=== PATIENT | female | born 1940 | race Caucasian/White ===

== ENCOUNTER → 2022-04-16 | Day surgery (SDC) | payer MEDICARE, OTHER ==
[~2022-04-16] VITALS: Ht 165.1 cm; Wt 57.5 kg
[~2022-04-16] MED LIST: ALEVE220 MG PO; ASPIRIN EC81 MG PO; CERTAGEN1 EACH PO; FISH OIL 1,2001 EAC1 PO; FLAX SEED OIL1 EACH PO; HCTZ25 MG PO; HYDROCHLOROTH12.5 MG PO; MELOXICAM7.5 MG PO; PERCOCET 5-3251 EACH PO; PROBIOTIC PO; VITAMIN C500 M2 PO; VITAMIN D325 MC2 PO
[2022-04-16 08:36] LABS: HCT 43.7 % (37.0-47.0); HGB 14.8 g/dl (12.5-16.0); MCH 31.7 pg (25.0-31.0); MCHC 33.9 g/dL (32.0-36.0); MCV 93.6 fL (78.0-100.0); MPV 8.6 fL (6.0-9.5); RBC 4.67 M/uL (4.20-5.40); RDW 13.1 % (11.5-14.0); WBC 3.8 K/uL (4.0-10.5)
[2022-04-16 09:00] LABS: ALBUMIN 3.4 g/dL (3.4-5.0); BILIRUBIN - TOTAL 0.8 mg/dL (0.2-1.0); BUN/CREAT RATIO (CALC) 18.3 RATIO; CREATININE 0.82 mg/dL (0.51-0.95); GLOBULIN (CALCULATION) 3.4 g/dL; POTASSIUM 3.6 mmol/L (3.5-5.1); TOTAL PROTEIN 6.8 g/dL (6.4-8.2)
== END | disposition home or self-care (01) ==
LOC: FAS 07:53
PROVIDERS: Surgery
DX: K22.2 Esophageal obstruction (principal); K31.9 Disease of stomach and duodenum, unspecified; K44.9 Diaphragmatic hernia without obstruction or gangrene; K29.70 Gastritis, unspecified, without bleeding; I10 Essential (primary) hypertension; Z87.891 Personal history of nicotine dependence; Z79.899 Other long term (current) drug therapy
CPT/HCPCS: 36415; 80053; C1726; J2704; J7120